=== PATIENT | male | born 1975 | race American Indian/Alaskan Native ===

== ENCOUNTER 2017-02-21 14:28 | Emergency (ER) | payer MEDICAID, OTHER ==
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
[2017-02-21] MEDS ORDERED: Sodium Chloride 0.9% 10 ML Syringe FLUSH PRN (14:52)
[2017-02-21] MEDS ORDERED: Ondansetron 4 MG/2 ML SDV IV ONE (14:53)
[2017-02-21] MEDS ORDERED: MVI, Adult with Vitamin K 10 ML, Thiamine 100 MG, Folic Acid 1 MG in Lactated Ringers 1... IV ONE ×4 (14:53)
[2017-02-21] MEDS ORDERED: levETIRAcetam 1,000 MG in Sodium Chloride 0.9% 100 ML IV ONE (14:54)
[2017-02-21] MEDS ORDERED: LORazepam 2 MG/ML Syringe IVPUSH ONE (14:54)
[2017-02-21] MEDS ORDERED: Pantoprazole 40 MG Vial IVPUSH ONE (15:08)
[2017-02-21 15:10] LABS: CHLORIDE,CL 112 mmol/L (101-111); SODIUM,NA 146 mmol/L (135-145)
[2017-02-21 16:14] VITALS: BP 131/82
[2017-02-21] MEDS ORDERED: Pantoprazole 40 MG in Sodium Chloride 0.9% 100 ML IV SCH (16:15)
== END 2017-02-21 16:49 ==
LOC: DL.ED 14:28
DX: K92.2 Gastrointestinal hemorrhage, unspecified (principal); D61.818 Other pancytopenia; G40.909 Epilepsy, unspecified, not intractable, without status epilepticus; F10.929 Alcohol use, unspecified with intoxication, unspecified; R41.3 Other amnesia; Z88.8 Allergy status to other drugs, medicaments and biological substances
CPT/HCPCS: 36415; 80053; 82150; 82550; 83690; 83735; 83880; 85025; 85610; 85730; 96361; 96365; 96375; 99285; C9113; G0480; J1953; J2060; J2405; J3411; J7050; J7120; J3490

== ENCOUNTER 2017-03-03 03:11 | Emergency (ER) | payer MEDICAID, OTHER ==
[2017-03-03 01:25] VITALS: BP 135/69
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
[2017-03-03 02:11] LABS: CHLORIDE,CL 108 mmol/L (101-111); SODIUM,NA 139 mmol/L (135-145)
[~2017-03-03 03:11] MED LIST: Acetaminophen 325 MG Tab PO ONE
== END 2017-03-03 04:19 ==
LOC: DL.ED 03:11
DX: F10.920 Alcohol use, unspecified with intoxication, uncomplicated (principal); Z88.8 Allergy status to other drugs, medicaments and biological substances; Z90.49 Acquired absence of other specified parts of digestive tract; Y90.6 Blood alcohol level of 120-199 mg/100 ml
CPT/HCPCS: 36415; 70450; 80053; 83605; 85025; 87040; 87077; 87186; 99285; A9270; G0480

== ENCOUNTER 2017-03-14 22:19 | Emergency (ER) | payer MEDICAID, OTHER ==
[2017-03-14 23:04] VITALS: BP 131/81
[2017-03-14 23:35] LABS: CHLORIDE,CL 111 mmol/L (101-111); SODIUM,NA 144 mmol/L (135-145)
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
== END 2017-03-15 00:05 | disposition home or self-care (01) ==
LOC: DL.ED 22:19
DX: R04.0 Epistaxis (principal); F10.129 Alcohol abuse with intoxication, unspecified; Z88.8 Allergy status to other drugs, medicaments and biological substances; Y04.0XXA Assault by unarmed brawl or fight, initial encounter; Y90.8 Blood alcohol level of 240 mg/100 ml or more
CPT/HCPCS: 36415; 70450; 70486; 80053; 85025; 85610; 99285; G0480

== ENCOUNTER 2017-03-18 08:32 | Emergency (ER) | payer MEDICAID, OTHER ==
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
[2017-03-18 08:53] VITALS: BP 122/71
[2017-03-18] MEDS ORDERED: carBAMazepine 200 MG Tab PO ONE (09:19)
[2017-03-18] MEDS ORDERED: LORazepam 1 MG Tab PO ONE (09:20)
[2017-03-18 09:41] LABS: CHLORIDE,CL 113 mmol/L (101-111); SODIUM,NA 144 mmol/L (135-145)
== END 2017-03-18 09:30 | disposition left against medical advice (07) ==
LOC: DL.ED 08:32
DX: R51 Headache (principal); Z53.21 Procedure and treatment not carried out due to patient leaving prior to being seen by health care provider; G40.909 Epilepsy, unspecified, not intractable, without status epilepticus; Z79.899 Other long term (current) drug therapy; Z87.891 Personal history of nicotine dependence; Z72.89 Other problems related to lifestyle; F12.90 Cannabis use, unspecified, uncomplicated
CPT/HCPCS: 36415; 80053; 85025; 99284; G0480

== ENCOUNTER 2017-03-23 02:21 | Emergency (ER) | payer MEDICAID, OTHER ==
[2017-03-23] MEDS ORDERED: Iopamidol 612 MG/ML 100 ML Bottle IVPUSH ONE (02:35)
[2017-03-23 02:36] VITALS: BP 147/94
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
[2017-03-23 02:53] LABS: CHLORIDE,CL 112 mmol/L (101-111); SODIUM,NA 147 mmol/L (135-145)
[2017-03-23] MEDS ORDERED: MVI, Adult with Vitamin K 10 ML, Thiamine 100 MG, Folic Acid 1 MG in Lactated Ringers 1... IV ONE ×4 (02:56)
[2017-03-23] MEDS ORDERED: Cephalexin 500 MG Cap PO ONE (04:49)
== END 2017-03-23 05:05 ==
LOC: EEVIPCON 02:21 → DL.ED 02:21
DX: S22.41XA Multiple fractures of ribs, right side, initial encounter for closed fracture (principal); J01.00 Acute maxillary sinusitis, unspecified; F10.129 Alcohol abuse with intoxication, unspecified; Z88.8 Allergy status to other drugs, medicaments and biological substances; Z90.49 Acquired absence of other specified parts of digestive tract; Y90.8 Blood alcohol level of 240 mg/100 ml or more; Y08.89XA Assault by other specified means, initial encounter
CPT/HCPCS: 36415; 70450; 70486; 71260; 72125; 74177; 80053; 83735; 85025; 96365; 99285; A9270; G0480; J3411; J7120; Q9967; J3490